=== PATIENT | male | born 2000 | race Caucasian/White ===

== ENCOUNTER 2024-01-31 14:45 | Outpatient (CLI) | payer OTHER ==
--- NOTE | 2024-02-01 13:47 | XRAY Report ---
PROCEDURE: Ankle 3+V RT INDICATIONS: SPRAIN OF CALCANEOFIBULAR LIGAMENT RIGHT ANKLE TECHNIQUE: 3 views of the ankle were acquired. COMPARISON: None FINDINGS: Bones: No fractures or dislocations. Ankle mortise is normally aligned. No suspicious bony lesions . Soft tissues: Unremarkable without significant soft tissue swelling. No radiopaque foreign body. IMPRESSION: Unremarkable ankle radiographs Reviewed by: Demario Goldberg MD on 02/01/2024 12:45 PM [facility] Approved by: Demario Goldberg MD on 02/01/2024 12:45 PM AKDT Station ID: [id number]
== END 2024-01-31 15:00 | disposition home or self-care (01) ==
LOC: DI.N 14:45
PROVIDERS: ATTEND Physician Assistant
DX: S93.411A Sprain of calcaneofibular ligament of right ankle, initial encounter (principal)